=== PATIENT | female | born 1970 | race Caucasian/White ===

== ENCOUNTER 2022-11-03 03:27 | Emergency (ER) | payer SELFPAY ==
[~2022-11-03] VITALS: Ht 172.7 cm; Wt 68.0 kg
--- NOTE | 2022-11-03 03:29 | NUR ---
PT [facility] BED 7
[2022-11-03 03:35] VITALS: BP 110/64
[2022-11-03] MEDS ORDERED: NACL 0.9% 1,000 ML IV ONE (03:55)
[2022-11-03] MEDS ORDERED: ONDANSETRON 4 MG/2 ML VIAL IVP ONE (03:55)
[2022-11-03] MEDS ORDERED: ONDANSETRON 4 MG/2 ML VIAL ONE (03:59)
--- NOTE | 2022-11-03 06:41 | NUR ---
pt able to ambulate witha steady but pt does admit some dizziness but is able to walk and have balance.
--- NOTE | 2022-11-03 06:45 | NUR ---
IV removed, catheter intact and site benign. Applied folded 4x4 gauze and tape to stop bleeding.
[2022-11-03 06:47] VITALS: BP 90/51
--- NOTE | 2022-11-03 06:47 | NUR ---
Patient discharged with v/s stable. Written and verbal after care instructions given and explained about alcohol intoxication. Patient verbalized understanding. ID band removed. Ambulatory with steady gait. All questions addressed prior to discharge. Advised to follow up with PMD.
== END 2022-11-03 06:47 | disposition home or self-care (01) ==
LOC: MED 03:27
DX: F10.129 Alcohol abuse with intoxication, unspecified (principal); T40.715A Adverse effect of cannabis, initial encounter; Y92.89 Other specified places as the place of occurrence of the external cause; Y90.9 Presence of alcohol in blood, level not specified
CPT/HCPCS: 96374; 99283; J2405